=== PATIENT | female | born 1990 ===

== ENCOUNTER 2021-08-05 21:27 | Emergency (ER) | payer MEDICAID ==
[~2021-08-05] VITALS: Ht 152.4 cm; Wt 90.9 kg
[2021-08-05] MEDS ORDERED: NAPR275T96 PO (21:33)
[2021-08-05 22:00] VITALS: BP 146/80
== END 2021-08-05 22:32 | disposition home or self-care (01) ==
LOC: EMS 21:29
DX: K04.7 Periapical abscess without sinus (principal); K02.9 Dental caries, unspecified; Z79.899 Other long term (current) drug therapy
CPT/HCPCS: 99283; Z7502